=== PATIENT | female | born 1990 | race Caucasian/White ===

== ENCOUNTER 2017-01-17 09:30 | Emergency (ER) | payer BC, OTHER ==
[2017-01-17 09:37] VITALS: BP 106/68; PULSE 87; TEMP 98; BMI 18.8
--- NOTE | 2017-01-17 09:51 | PDOC ---
History of Present Illness - General Chief Complaint: Sore Throat Stated Complaint: SORE THROAT Time Seen by Provider: 01/17/17 09:36 History Source: Patient, Old Records Exam Limitations: No Limitations - History of Present Illness Initial Comments: 01/17/17 09:47 26-year-old female with no significant past medical history presents to the emergency Department with complaints of one half week history of sore throat that she described as painful swallowing. She also described feeling a fullness in her bilateral ears when she swallows. She has not taken any medication for the pain. She has had subjective fever over the weekend but does not feel feverish now. She denies chills. She denies abdominal pain, nausea, vomiting, complaints. Her last menstrual period was 2 weeks ago. Past History - Past Medical History Allergies/Adverse Reactions: Allergies Allergy/AdvReac Type Severity Reaction Status Date / Time No Known Allergies Allergy Verified 01/17/17 09:34 Home Medications: Ambulatory Orders Clonazepam 0.5 mg PO ASDIR 01/17/17 Anemia: No Asthma: No Cancer: No Cardiac Disorders: No CVA: No COPD: No CHF: No Dementia: No Diabetes: No GI Disorders: No Disorders: No HTN: No Hypercholesterolemia: No Liver Disease: No Suicide Attempt (Hx): No Seizures: No Thyroid Disease: No - Immunization History Immunization Up to Date: Yes - Psycho/Social/Smoking Cessation Hx Anxiety: No Suicidal Ideation: No Smoking Status: No Smoking History: Never smoked Have you smoked in the past 12 months: No Number of Cigarettes Smoked Daily: 0 Hx Alcohol Use: No Drug/Substance Use Hx: No Substance Use Type: None Review of Systems - Review of Systems Able to Perform ROS?: Yes Is the patient limited Danish proficient: No Constitutional: No: Symptoms Reported HEENTM: Yes: See HPI Respiratory: No: Symptoms reported Cardiac (ROS): No: Symptoms Reported ABD/GI: No: Symptoms Reported : No: Symptoms Reported Musculoskeletal: No: Symptoms Reported Integumentary: No: Symptoms Reported *Physical Exam - Vital Signs Last Vital Signs Temp Pulse Resp BP Pulse Ox 98 F 87 16 106/68 100 01/17/17 09:30 01/17/17 09:30 01/17/17 09:30 01/17/17 09:30 01/17/17 09:30 - Physical Exam Comments: 01/17/17 09:49 GENERAL: Well developed, well nourished. Awake and alert. No acute distress. HEENT: Normocephalic, atraumatic. PERRLA, EOMI. No conjunctival pallor. Sclera are non- icteric. Moist mucous membranes. Oropharynx is clear with erythema but no exudates. TM's are intact bilaterally with positive light reflexes. NECK: Supple. Full ROM. No JVD. No lymphadenopathy. CARDIOVASCULAR: Regular rate and rhythm. No murmurs, rubs, or gallops. Distal pulses are 2+ and symmetric. PULMONARY: No evidence of respiratory distress. Lungs clear to auscultation bilaterally. No wheezing, rales or rhonchi. EXTREMITIES: No cyanosis. No clubbing. No edema. No calf tenderness. SKIN: Warm and dry. Normal capillary refill. No rashes. No jaundice. NEUROLOGICAL: Alert, awake, appropriate. Cranial nerves 2-12 intact. Grossly non-focal exam. PSYCHIATRIC: Cooperative. Good eye contact. Appropriate mood and affect. Medical Decision Making - Medical Decision Making 01/17/17 09:50 26 y/o female with sore thorat. DDx includes but is not limited to: strep pharyngitis, viral pharyngitis. Plan: 1. Rapid strep 2. Pain management 3. Observe and re-evaluate 01/17/17 10:16 Addendum: The rapid strep test is negative. Will discharge home. Follow-up with PCP. Return to the ED if Sx persist, worsen or new Sx arise. *DC/Admit/Observation/Transfer Diagnosis at time of Disposition: Pharyngitis - Discharge Dispostion Disposition: HOME Condition at time of disposition: Stable Admit: No - Patient Instructions Printed Discharge Instructions: DI for Viral Pharyngitis Additional Instructions: Your rapid strep test is negative but a throat culture has been sent to confirm this. If the results come back positive, you will get a call from the ED. You may take ibuprofen 600-800mg every 6-8 hours as needed for the pain. Follow-up with your primary care physician. Return to the ED if your symptoms persist, worsen or new symptoms arise.
== END 2017-01-17 10:24 | disposition home or self-care (01) ==
LOC: FER 09:30
DX: J02.9 Acute pharyngitis, unspecified (principal)
CPT/HCPCS: 87070; 87430; 99283-25

== ENCOUNTER 2017-11-16 11:44 | Emergency (ER) | payer BC ==
[2017-11-16 11:54] VITALS: BP 108/76; PULSE 74; TEMP 98.1; BMI 17.9
--- NOTE | 2017-11-16 13:48 | PDOC ---
History of Present Illness - General Chief Complaint: Cold Symptoms Stated Complaint: NAUSEA, LIGHTHEADED Time Seen by Provider: 11/16/17 13:20 History Source: Patient Exam Limitations: No Limitations - History of Present Illness Initial Comments: 11/16/17 13:46 Patient is a [27-year-old female, no significant medical history, currently on meloxicam only for pain [employer] presents with generalized aches, tactile fever woke up sweating. "Think she may have the flu"] Allergies: No known allergies Medications: [None] Family History: Non-contributory Social History: Denies smoking, alcohol use, or IVDU Vital signs on arrival are [notable for pulse of 96.] Review of Systems GENERAL/CONSTITUTIONAL: [Tactile fever, body aches and chills, woke up sweaty No weakness. No weight change.] HEAD, EYES, EARS, NOSE AND THROAT: [No change in vision. No ear pain or discharge. No sore throat. ] CARDIOVASCULAR: [No chest pain or shortness of breath.] RESPIRATORY: [No cough, wheezing, or hemoptysis.] GASTROINTESTINAL: [No nausea, vomiting, diarrhea or constipation. No rectal bleeding.] GENITOURINARY: [No dysuria, frequency, or change in urination.] MUSCULOSKELETAL: [No joint or muscle swelling or pain. No neck or back pain.] SKIN AND BREASTS: [No rash or easy bruising.] NEUROLOGIC: [No headache, vertigo, loss of consciousness, or loss of sensation.] PSYCHIATRIC: [No depression or anxiety.] ENDOCRINE: [No increased thirst. No abnormal weight change.] HEMATOLOGIC/LYMPHATIC: [No anemia, easy bleeding, or history of blood clots.] ALLERGIC/IMMUNOLOGIC: [No hives or skin allergy. No latex allergy.] Physical Exam: GENERAL: [The patient is awake, alert, and fully oriented, in no acute distress. ] HEAD: [Normal with no signs of trauma.] EYES: [Pupils equal, round and reactive to light, extraocular movements intact, sclera anicteric, conjunctiva clear.] ENT: [Ears normal, nares patent, oropharynx clear without exudates. Moist mucous membranes. No uvula deviation] NECK: [Normal range of motion, supple without lymphadenopathy, JVD, or masses.] LUNGS: [Breath sounds equal, clear to auscultation bilaterally. No wheezes, and no crackles.] HEART: [Regular rate and rhythm, normal S1 and S2 without murmur, rub or gallop. ] ABDOMEN: [Soft, nontender, normoactive bowel sounds. No guarding, no rebound. No masses. No bruising or abrasions] RECTAL : [Guaiac negative, normal rectal tone.] MUSCULOSKELETAL: [Normal range of motion, no edema. No clubbing or cyanosis. No cords, erythema, or tenderness. No CVA Tenderness with fist.] NEUROLOGICAL: [Cranial nerves II through XII grossly intact. Normal speech, normal gait.] PSYCH: [Normal mood, normal affect.] SKIN: [Warm, Dry, normal turgor, no rashes or lesions noted.] Past History - Past Medical History Allergies/Adverse Reactions: Allergies Allergy/AdvReac Type Severity Reaction Status Date / Time No Known Allergies Allergy Verified 11/16/17 11:51 Home Medications: Ambulatory Orders Ibuprofen [Motrin -] 400 mg PO QID #20 tablet 11/16/17 Anemia: No Asthma: No Cancer: No Cardiac Disorders: No CVA: No COPD: No CHF: No DVT: No Dementia: No Diabetes: No GI Disorders: No Disorders: No HTN: No Hypercholesterolemia: No Liver Disease: No Seizures: No Thyroid Disease: No - Immunization History Immunization Up to Date: Yes - Suicide/Smoking/Psychosocial Hx Smoking Status: No Smoking History: Never smoked Have you smoked in the past 12 months: No Number of Cigarettes Smoked Daily: 0 Hx Alcohol Use: No Drug/Substance Use Hx: No Substance Use Type: None *Physical Exam - Vital Signs Last Vital Signs Temp Pulse Resp BP Pulse Ox 98.1 F 74 18 108/76 100 11/16/17 11:51 11/16/17 11:51 11/16/17 11:51 11/16/17 11:51 11/16/17 11:51 Medical Decision Making - Medical Decision Making 11/16/17 13:47 A/P: Patient with influenza-type illness, we'll send rapid influenza 11/16/17 14:36 Chest x-ray is negative influenza pending 11/16/17 14:49 X-rays negative, influenza is negative, patient denies any chest pain or shortness of breath no fever. If fever presents will follow-up with primary care doctor tomorrow. I discussed the physical exam findings, ancillary test results and final diagnoses with the patient. I answered all of the patient's questions. The patient was satisfied with the care received and felt comfortable with the discharge plan and treatment plan. The patient will call to arrange follow-up and will return to the Emergency Department with any new, persistent or worsening symptoms. *DC/Admit/Observation/Transfer Diagnosis at time of Disposition: Fatigue - Discharge Dispostion Disposition: HOME Condition at time of disposition: Stable Admit: No - Prescriptions Prescriptions: Ibuprofen [Motrin -] 400 mg PO QID #20 tablet - Referrals Referrals: Neville Oliver [Primary Care Provider] - - Patient Instructions Additional Instructions: Increase fluids to prevent dehydration Tylenol for headache Motrin for fever greater than 101.0 Please followup with primary care in 3 days if symptoms persist Return to emergency department any increased cough, fever, inability to drink or other concerns - Post Discharge Activity Forms/Work/School Notes: Back to Work
== END 2017-11-16 14:53 | disposition home or self-care (01) ==
LOC: JERFT 11:44
DX: R53.83 Other fatigue (principal)
CPT/HCPCS: 71046-TC; 84703; 87804; 99281-25